=== PATIENT | male | born 1955 | race Caucasian/White ===

== ENCOUNTER 2019-10-15 07:01 | Outpatient (NON) | payer OTHER, SELFPAY ==
[2019-10-15 18:39] LABS: SARS-CoV-2 RNA PCR Negative
== END 2019-10-15 07:02 ==
DX: Z20.828 Contact with and (suspected) exposure to other viral communicable diseases (principal); R68.89 Other general symptoms and signs
CPT/HCPCS: 87635; C9803; U0003

== ENCOUNTER 2022-10-04 10:43 | Emergency (ER) | payer OTHER, SELFPAY ==
[2022-10-04 10:59] VITALS: BP 149/90; PULSE 68; RESP 16; TEMP 36.6; O2SAT 97
--- NOTE | 2022-10-04 11:13 | ED.URI ---
HPI - URI/Sore Throat General Chief Complaint: Upper Respiratory Infection Stated Complaint: Sore Throat Time Seen by Provider: 10/04/22 11:09 Source: patient and RN notes reviewed Mode of arrival: ambulatory Limitations: no limitations History of Present Illness HPI Narrative: Patient presents today with a one-week history of sore throat. Denies any additional symptoms. Had exposure to strep throat last week by grandson. Currently rates his pain 3/10 and has been using Chloraseptic spray with some relief. Related Data Allergies Allergy/AdvReac Type Severity Reaction Status Date / Time No Known Allergies Allergy Verified 10/04/22 10:58 Review of Systems Review of Systems: CONSTITUTIONAL: Denies body aches, fever, chills, or sweats. EYES: Denies visual changes, redness, or discharge. ENT: Denies rhinorrhea, congestion, or otalgia.+ sore throat CARDIOVASCULAR: Denies chest pain, palpitations, or edema. RESPIRATORY: Denies cough or dyspnea. GASTROINTESTINAL: Denies abdominal pain, nausea, vomiting, or diarrhea. GENITOURINARY: Denies dysuria or hematuria. SKIN: Denies rash, itching, or wounds. MUSCULOSKELETAL: Denies back pain, joint pain, or myalgia. NEUROLOGIC: Denies headache, numbness, tingling, or weakness. PSYCH: Denies depression or anxiety. PMFSH Comments At time of signature, I have reviewed and agree with nursing past medical, surgical, social and family history unless otherwise noted. Please see nursing chart for further information. There is no relevant family history pertinent to the presenting complaint Exam Narrative: GENERAL: Well-appearing, well-nourished, and in no acute distress. HEAD: Normocephalic, atraumatic. EYES: EOMI. No redness or drainage. Conjunctivae normal. ENT: Mucous membranes pink and moist. Nares clear. No rhinorrhea. TMs normal bilaterally. Throat mildly erythematous without edema or exudate. Uvula midline. NECK: Normal AROM. Supple. No lymphadenopathy. CHEST: No respiratory distress. Clear to auscultation. HEART: Regular rate and rhythm. No murmur appreciated. Normal peripheral pulses. EXTREMITIES: Normal range of motion. No edema. SKIN: Warm, dry, no rash. Capillary refill normal. Normal skin turgor. NEURO: No focal deficits. Alert and oriented x3. Gait steady. PSYCH: Normal affect. No signs of depression or anxiety. Course Course Level of Care: Express Care Visit Vital Signs Vital signs: Vital Signs Temperature 97.9 F 10/04/22 10:59 Pulse Rate 68 10/04/22 10:59 Respiratory Rate 16 10/04/22 10:59 Blood Pressure 149/90 H 10/04/22 10:59 Pulse Oximetry 97 10/04/22 10:59 Oxygen Delivery Room Air 10/04/22 10:59 Temperature 97.9 F 10/04/22 10:59 Pulse Rate 68 10/04/22 10:59 Respiratory Rate 16 10/04/22 10:59 Blood Pressure 149/90 H 10/04/22 10:59 Pulse Oximetry 97 10/04/22 10:59 Oxygen Delivery Room Air 10/04/22 10:59 Reviewed. Pt has been instructed to follow up with his PCP regarding his elevated blood pressure today. MDM - URI/Sore Throat MDM Narrative Medical decision making narrative: Rapid strep positive. Will treat with amoxicillin. Anticipatory guidance given. Differential Diagnosis Differential diagnosis: Likely upper respiratory infection, otitis media, viral infection, pharyngitis and other (Strep throat) Lab Data Attestation: I reviewed the patient's lab results. Labs: Strep Screen Positive Group A Strep *(Reference Range: Negative)* Critical Care Time Critical Care Time Critical Care Time: No Discharge Plan Discharge Clinical Impression: Strep throat Patient Disposition: Home, Self-Care Condition: Stable Instructions: Antibiotic Form, Strep Throat (DC) Additional Instructions: You have tested positive for strep throat. Please take the amoxicillin as prescribed until gone. Continue Chloraseptic spray, Tylenol, or ib
== END 2022-10-04 11:20 | disposition home or self-care (01) ==
PROVIDERS: Emergency Provider Nurse Practitioner
DX: J02.0 Streptococcal pharyngitis (principal)
CPT/HCPCS: 87880; 99213; G0463

== ENCOUNTER 2023-09-07 07:24 | Emergency (ER) | payer MEDICARE, SELFPAY ==
--- NOTE | ~2023-09-07 | XR_ITS ---
Right foot Technique: AP, oblique, and lateral views were obtained. Clinical History: Injury Findings: There is an acute, oblique, mildly displaced fracture of the fifth metatarsal shaft. No oth er fracture or dislocation seen.. Joint spaces are preserved without erosive or degenerative change. Soft tissues are unremarkable. Impression: Acute, oblique fracture of the fifth metatarsal shaft. Reviewed, dictated and finalized at location . Impression: Acute, oblique fracture of the fifth metatarsal shaft.
[2023-09-07 07:27] VITALS: BP 186/81; PULSE 74; RESP 16; TEMP 36.7; O2SAT 100
--- NOTE | 2023-09-07 10:11 | ED.LOWEXIN ---
HPI - Extremity Injury (Lower) General Chief Complaint: Extremity Injury, Lower Stated Complaint: I think I broke some bones in my foot Time Seen by Provider: 09/07/23 07:59 Source: patient Mode of arrival: ambulatory Limitations: no limitations History of Present Illness HPI Narrative: 67 years old white male came to the ED by private car complaining that right foot pain mainly laterally started yesterday at 1:00 p.m., while going down a curb, rolled right foot. Fell to the ground, denies other injuries. Related Data Allergies Allergy/AdvReac Type Severity Reaction Status Date / Time No Known Allergies Allergy Verified 09/07/23 07:35 Review of Systems Review of Systems: All systems reviewed & are unremarkable except as noted in HPI and below Exam Narrative: General appearance: Well-developed, well-nourished Skin: Normal color Head: Normocephalic, nontraumatic Eyes: Clear conjunctiva ENT: Oropharynx normal, ears normal, nose normal Neck: Supple, nontender Chest and respiratory: Airway patent, no respiratory distress, no accessory muscle use Heart: Regular rate/rhythm Abdomen: Soft, nontender, no organomegaly, quiet bowel sounds Vascular: Normal peripheral pulses, normal capillary refill. Musculoskeletal: Right foot showed diffuse tenderness, swelling, bruises dorsally, more tenderness laterally. Neurologic: Alert and oriented ?3, KITCHEN ASSISTANT is normal as tested, no gross motor deficit Course Vital Signs Vital signs: Vital Signs Temperature 36.7 C 09/07/23 07:27 Pulse Rate 74 09/07/23 07:27 Respiratory Rate 16 09/07/23 07:27 Blood Pressure 186/81 H 09/07/23 07:27 Pulse Oximetry 100 09/07/23 07:27 Oxygen Delivery Room Air 09/07/23 07:27 Temperature 36.7 C 09/07/23 07:27 Pulse Rate 74 09/07/23 07:27 Respiratory Rate 16 09/07/23 07:27 Blood Pressure 186/81 H 09/07/23 07:27 Pulse Oximetry 100 09/07/23 07:27 Oxygen Delivery Room Air 09/07/23 07:27 MDM - Extremity Injury (Lower) MDM Narrative Medical decision making narrative: Differential diagnosis, sprain, strain, contusion, fracture X-ray right foot showed 5th metatarsal fracture. Patient was discharged on crutches, was advised to keep his foot elevated and follow up with talent acquisition coordinator/orthopedic Differential Diagnosis Differential diagnosis: Likely other (As above) Imaging Data Radiologist's impression: Impressions Foot X-Ray 09/07/23 08:16 Impression: Acute, oblique fracture of the fifth metatarsal shaft. Critical Care Time Critical Care Time Critical Care Time: No Discharge Plan Discharge Clinical Impression: Foot fracture, right Patient Disposition: Home, Self-Care Condition: Stable Instructions: Foot Fracture in Adults (ED) Additional Instructions: RETURN IF SYMPTOMS ARE WORSENING , CALL [facility] FOR APPOINTMENT, TAKE TYLENOL NEEDED FOR ACHES AND PAIN, CONTINUE HOME MEDICATIONS. CRUTCHES KEEP FOOT ELEVATED ABOVE THE LEVEL OF YOUR HEART I SPENT 20 MINUTES/HOUR FOR THE NEXT 24 HOURS TYLENOL, IBUPROFEN NEEDED FOR PAIN Prescriptions: No Action amoxicillin 875 mg tablet 875 mg PO Q12H 10 Days Qty: 20 0RF Follow-up/Referrals: Vicente Bermudez MD [Physician] - 09/10/23 Ej Villasenor Jr., DPM [Physician] - 09/10/23 UNKNOWN,DOCTOR [Primary Care Provider] -
[2023-09-07 10:32] VITALS: BP 141/87; PULSE 77; RESP 16; TEMP 36.9; O2SAT 99
== END 2023-09-07 10:36 | disposition home or self-care (01) ==
PROVIDERS: Emergency Provider Emergency Medicine
DX: S92.351A Displaced fracture of fifth metatarsal bone, right foot, initial encounter for closed fracture (principal); X50.9XXA Other and unspecified overexertion or strenuous movements or postures, initial encounter
CPT/HCPCS: 73630; 99284

== ENCOUNTER 2024-10-19 09:48 | Emergency (ER) | payer MEDICARE, SELFPAY ==
--- NOTE | ~2024-10-19 | XR_ITS ---
XR foot LT min 3V 10/19/2024 10:14 Indication: Left first toe pain after injury Procedure: 4 views left first toe Comparison: No prior studies for comparison. Findings: There are questionable erosions at the distal aspect of the first metatarsal. There is a sesamoid bone which appears fragmented at the first metatarsal phalangeal joint medially. Lisfranc joint intact. There is anatomic alignment. Impression: 1: Fragmented appearance to sesamoid bone adjacent to the first metatarsal phalangeal joint. Cannot exclude sesamoid fracture. Correlate for point tenderness. 2: Possible subtle erosions first metatarsal head. Consider inflammatory arthropathy. Reviewed, dictated and finalized at location O. Impression: 1: Fragmented appearance to sesamoid bone adjacent to the first metatarsal phal angeal joint. Cannot exclude sesamoid fracture. Correlate for point tenderness. 2: Possible subtle erosions first metatarsal head. Consider inflammatory arthro gerda.
[2024-10-19 09:58] VITALS: BP 126/82; PULSE 80; RESP 16; TEMP 35.9; O2SAT 100
--- NOTE | 2024-10-19 10:56 | ED.GENADULT ---
HPI - General Adult General Chief complaint: Extremity Injury, Lower Stated complaint: INJURED L FOOT Source: patient Mode of arrival: ambulatory Limitations: no limitations History of Present Illness HPI narrative: Pt presents for evaluation of left foot pain. Symptom onset yesterday. He was getting out of a pool when he slipped. His left great toe hit the grab bar in the process. He now reports 7/10 in the affected area. pain is primarily present with weight-bearing and walking. Tried taking aspirin for symptoms. He denies any paresthesias. Related Data Allergies Allergy/AdvReac Type Severity Reaction Status Date / Time No Known Allergies Allergy Verified 10/19/24 10:10 Review of Systems Review of Systems: CONSTITUTIONAL: Denies fever, chills, or sweats. EYES: Denies visual changes, redness, or discharge. ENT: Denies rhinorrhea, congestion, sore throat, or otalgia. CARDIOVASCULAR: Denies chest pain, palpitations, or edema. RESPIRATORY: Denies cough or dyspnea. GASTROINTESTINAL: Denies abdominal pain, nausea, vomiting, or diarrhea. GENITOURINARY: Denies dysuria or hematuria. SKIN: Denies rash or itching. MUSCULOSKELETAL: Reports left foot pain. Denies other musculoskeletal pain NEUROLOGIC: Denies headache, numbness, dizziness, or weakness. PSYCHIATRIC: Denies anxiety or depression. [facility] Past Medical History Medical History Fracture of fifth metatarsal bone Surgical History Surgical History No pertinent past surgical history Family History Family History Father Heart disease Social History Social History Social History: caffeine use Smoking status: Former smoker Alcohol intake: current Drinks per week: 20 Substance use type: does not use Living arrangements: with family Occupation/Education: retired Gender identity (if verbalized by the patient): Male Exam Narrative: GENERAL: Well-appearing, well-nourished, and in no acute distress. HEAD: Normocephalic, atraumatic. EYES: PERRLA and EOMI. ENT: Nares clear, no rhinorrhea or epistaxis. Mucous membranes moist. Oropharynx without tonsillar hypertrophy exudate or other lesions. Bilateral TMs pearly tinoco nonbulging NECK: Supple. No adenopathy or masses. No carotid bruits or JVD CHEST: Clear to auscultation. No respiratory distress. No wheezes rales or rhonchi HEART: Regular rate and rhythm. No murmur heard. Normal peripheral pulses. ABDOMEN: Soft, nontender, nondistended, normal active bowel sounds. EXTREMITIES: able to wiggle all digits of the left foot. There is tenderness and swelling over the 1st MTP joint of the left foot SKIN: Warm, dry, no rash. NEURO: No focal deficits. Alert and oriented x3. PSYCH: Normal mood and affect. Course Course Emergency Course: This is a 68-year-old male who presented for evaluation of left foot pain. X-ray concerning for sesamoid fracture. Provided with postop shoe. Will discharge with hydrocodone. I suggested podiatry referral but he would like to return to see his Orthopedic. He was provided with that contact information. Go to the ER for intractable pain. Patient in agreement with plan of care. Level of Care: Express Care Visit Vital Signs Vital signs: Vital Signs Temperature 35.9 C L 10/19/24 09:58 Pulse Rate 80 10/19/24 09:58 Respiratory Rate 16 10/19/24 09:58 Blood Pressure 126/82 10/19/24 09:58 Pulse Oximetry 100 10/19/24 09:58 Temperature 35.9 C L 10/19/24 09:58 Pulse Rate 80 10/19/24 09:58 Respiratory Rate 16 10/19/24 09:58 Blood Pressure 126/82 10/19/24 09:58 Pulse Oximetry 100 10/19/24 09:58 Medical Decision Making Vital Signs Vital Signs: Vital Signs Temperature 35.9 C L 10/19/24 09:58 Pulse Rate 80 10/19/24 09:58 Respiratory Rate 16 10/19/24 09:58 Blood Pressure 126/82 10/19/24 09:58 Pulse Oximetry 100 10/19/24 09:58 Temperature 35.9 C L 10/19/24 09:58 Pulse Rate 80 10/19/24 09:58 Respiratory Rate 16 10/19/24 09:58 Blood Pressure 126/82 10/19/24 09:58 Pulse Oximetry 100 10/19/24 09:58 Imaging Data Radiologist's impression: XR foot LT min 3V 10/19/2024 10:14 Indication: Left first toe pain after injury Procedure: 4 views left first toe Comparison: No prior studies for comparison. Findings: There are questionable erosions at the distal aspect of the first metatarsal. There is a sesamoid bone which appears fragmented at the first metatarsal phalangeal joint medially. Lisfranc joint intact. There is anatomic alignment. Impression: 1: Fragmented appearance to sesamoid bone adjacent to the first metatarsal phalangeal joint. Cannot exclude sesamoid fracture. Correlate for point tenderness. 2: Possible subtle erosions first metatarsal head. Consider inflammatory arthropathy. Discharge Plan Discharge Clinical Impression: Closed fracture of sesamoid bone of left foot Patient Disposition: Home Condition: Stable Instructions: Antibiotic Form, Foot Fracture in Adults (ED) Additional Instructions: APPLY ICE TO THE AFFECTED AREA ELEVATE YOUR LEFT WHEN NOT AMBULATING IBUPROFEN OR NAPROXEN SHOULD HELP WITH PAIN AND SWELLING Patient Language: Mosotho Prescriptions: New hydrocodone-acetaminophen 5-325 mg tablet 1 - 2 tablet PO Q6H PRN (Reason: pain) Qty: 20 0RF Follow-up/Referrals: Ricky,Allan [Other] Vicente Bermudez MD [Physician, Orthopedics] Time of Disposition: 10:54
== END 2024-10-19 10:56 | disposition home or self-care (01) ==
PROVIDERS: Emergency Provider Nurse Practitioner
DX: S92.812A Other fracture of left foot, initial encounter for closed fracture (principal); W01.0XXA Fall on same level from slipping, tripping and stumbling without subsequent striking against object, initial encounter; Z87.891 Personal history of nicotine dependence
CPT/HCPCS: 73630; 99214; G0463